=== PATIENT | male | born 1985 | race Caucasian/White ===

== ENCOUNTER 2017-07-16 02:43 | Inpatient (IN) | payer MEDICARE, MEDICAID ==
[~2017-07-16] VITALS: Ht 188 cm; Wt 81.6 kg
--- NOTE | ~2017-07-16 | PN ---
Unit #: [id number] #: [id number] Patient: FRANKY ANTONIO [id number] [facility] [address] [place] [address] [id number] MR#: [id number] NAME: FRANKY ANTONIO. ROOM: P252 Age: 32 Sex: M Admission Date: 07/16/2017 : 1985 Attending Physician: Prabhjot Arora M.D. Admitting Physician: Prabhjot Arora M.D. Primary Care Physician: Generic Doctor Not In System [facility] PROGRESS NOTES DATE 07/18/2017 DISCUSSION Franky is tolerating Abilify with no significant adverse side effects and less sedation than previously. His mood remains labile and depressed with a congruent affect. He is alert and fully oriented. His memory and concentration are [id number]. His thought processes are logical with some auditory hallucinations and command suicidal content. ASSESSMENT Schizophrenia, paranoid type. Major depression. PLAN Continue Abilify and current medications. Dictated by... Sharyn Power/marixa TD: 07/19/2017 07:22 JOB #: [id number] [facility] PROGRESS NOTES Page 1 of 1 X Prabhjot Arora MD PROGRESS NOTE
--- NOTE | ~2017-07-16 | PN ---
Unit #: [id number] #: [id number] Patient: FRANKY ANTONIO [id number] [facility] [address] [place] [address] [id number] I MR#: [id number] NAME: FRANKY ANTONIO. ROOM: P258 Age: 32 Sex: M Admission Date: 07/16/2017 : 1985 Attending Physician: Prabhjot Arora M.D. Admitting Physician: Prabhjot Arora M.D. Primary Care Physician: Generic Doctor Not In System [facility] PROGRESS NOTES DATE 07/19/2017 DISCUSSION Franky is compliant with Abilify with no significant adverse side effects. He is sleeping okay with a good appetite. He is minimally participating in psychotherapy groups and activities and continues to report a depressed and irritable mood with suicidal ideation. He is equivocal about active psychosis. ASSESSMENT Bipolar depressed. PLAN Continue with Abilify. Dictated by... Prabhjot Arora M.D. MRH/bzg TD: 07/20/2017 08:37 JOB #: [id number] [facility] PROGRESS NOTES Page 1 of 1 X Prabhjot Arora MD X PROGRESS NOTE
--- NOTE | ~2017-07-16 | PN ---
Unit #: [id number] #: [id number] Patient: ADEOLA ANTONIO [id number] [facility] [address] [place] [address] [id number] I MR#: [id number] NAME: ADEOLA ANTONIO. ROOM: P258 Age: 32 Sex: M Admission Date: 07/16/2017 : 1985 Attending Physician: Prabhjot Arora M.D. Admitting Physician: Prabhjot Arora M.D. Primary Care Physician: Generic Doctor Not In System [facility] PROGRESS NOTES DATE 07/20/2017 DISCUSSION Mr. Antonio appears improved today and in fact states that he is "ready to go." He states that this is because of an upcoming weather change and he wants to establish his correction housing before the cold sets in, unfortunately, he wants to return to [place], [place] and we do not have transportation available today. He cannot provide private transportation on his own. He is compliant with medications and otherwise doing better. ASSESSMENT Bipolar depressed. PLAN Continue Abilify and work towards discharge as soon as transportation becomes available. Dictated by... Prabhjot Arora M.D. СЕРГЕЙ/marixa TD: 07/22/2017 09:39 JOB #: [id number] [facility] PROGRESS NOTES Page 1 of 1 X Prabhjot Arora MD PROGRESS NOTE
--- NOTE | ~2017-07-16 | HP ---
Unit #: [id number] #: [id number] Patient: FRANKY ANTONIO [id number] [place] [address] [id number] I MR#: [id number] NAME: FRANKY ANTONIO. ROOM: P252 Age: 32 Sex: M Admission Date: 07/16/2017 : 1985 Attending Physician: Prabhjot Arora M.D. Admitting Physician: Prabhjot Arora M.D. Primary Care Physician: Generic Doctor Not In System HISTORY AND PHYSICAL HISTORY OF PRESENT ILLNESS Franky is a 32 year old admitted to [address] [place] [address] with depression and verbalizing wanting to hurt himself. PAST MEDICAL HISTORY Nothing significant. PAST SURGICAL HISTORY Right knee. ALLERGIES Penicillin. SOCIAL HISTORY Smokes 1 pack per day. Drinks at least 16 ounces of beer on a daily basis and denies illicit drug use. FAMILY HISTORY Medically noncontributory. REVIEW OF SYSTEMS CONSTITUTIONAL: No fever or chills. HEENT: Denies any sore throat, ear pain or runny nose. CARDIOVASCULAR: Denies chest pain, irregular heart rhythm or palpitations. CHEST: Denies shortness of breath or cough. No hemoptysis. GASTROINTESTINAL: Denies nausea, vomiting, diarrhea or chronic constipation. ENDOCRINE: Denies history of increased thirst or urination. No recent significant weight loss or gain. GENITOURINARY: Denies dysuria, frequency, or hematuria. SKIN: Denies any rashes. HEMATOLOGIC: Denies history of increased bleeding or bruising. MUSCULOSKELETAL: Denies any hot, swollen joints. No generalized muscle pain. NEUROLOGIC: Denies problems with vision or speech. No frequent, severe headaches. No numbness, tingling or weakness in any extremities. Denies loss of bladder or bowel control. CURRENT MEDICATIONS 1. Geodon 40 mg b.i.d. 2. Desyrel p.r.n. 3. Milk of Magnesia p.r.n. 4. Maalox p.r.n. Unit #: [id number] #: [id number] Patient: FRANKY ANTONIO 5. Tylenol p.r.n. 6. Nicotine patch 14 mg daily. PHYSICAL EXAMINATION GENERAL: Alert, well-nourished, in no apparent distress. VITAL SIGNS: Blood pressure 152/82, heart rate 100, respirations 16, temperature 98.6. WEIGHT: 180. HEIGHT: 6 feet 2 inches. SKIN: Warm and dry without rash or lesion. HEENT: Normocephalic. TMs not viewed. Oral and nasal passages clear. Conjunctivae clear. PERRLA. EOMs intact. NECK: Supple without lymphadenopathy or thyromegaly. HEART: Regular rate and rhythm without murmur. LUNGS: Clear. ABDOMEN: Soft, nontender. : Not done. EXTREMITIES: No evidence of cyanosis, clubbing or edema. Moves all without focal deficit. NEUROLOGICAL: Grossly within normal limits. Cranial Nerves: II: Visual meeks are intact. III, IV AND : Extraocular movements are intact. Pupils are equal, round and reactive to light. V: Facial sensation is grossly normal. VII: Facial movements and expression are normal. VIII: Auditory acuity grossly intact. IX, X: Uvula is midline. Phonation is normal. XI: Patient shrugs shoulders and turns head normally. XII: Tongue protrudes in the midline. Sensory and Motor Function: Sensory and motor sensation is grossly normal. Motor: moves all extremities well. Coordination: Gait is normal. Deep Tendon Reflexes: Intact. IMPRESSION Psychiatric admission. RECOMMENDATIONS PSYCHIATRIC: Per psychiatrist. MEDICAL: See no contraindication to participate in facility's activities. MEDICAL PROGNOSIS Good. MEDICAL CONDITION Stable. Dictated by... Christa Hester P.A.-C. for Sharyn Ceron/beverly TD: 07/16/2017 18:38 JOB #: [id number] Unit #: [id number] #: [id number] Patient: FRANKY ANTONIO HISTORY AND PHYSICAL Page 1 of 1 X Christa Hester HISTORY AND PHYSICAL
--- NOTE | ~2017-07-16 | DS ---
Unit #: [id number] #: [id number] Patient: FRANKY ANTONIO [id number] [facility] [address] [place] [address] [id number] I MR#: [id number] NAME: FRANKY ANTONIO. ROOM: P258 Age: 32 Sex: M Admission Date: 07/16/2017 : 1985 Discharge Date: 07/22/2017 Attending Physician: Prabhjot Arora M.D. Primary Care Physician: Generic Doctor Not In System DISCHARGE SUMMARY REASON FOR ADMISSION Franky is a 32-year-old man who came to the emergency room with and had relapsed to psychosis after he stopped his medications. He did have suicidal ideation and [facility]. DIAGNOSTIC STUDIES LABORATORY DATA: See referring hospital records. HOSPITAL COURSE Patient was admitted and placed on suicide precautions. Geodon twice daily 40 mg was initiated for psychosis and trazodone for insomnia. The patient complained of excessive sedation from Geodon and stated that he could not tolerate this medication, so it was changed to Abilify 15 mg at bedtime. Trazodone was continued, but the patient rarely used it for sleep. His mood improved, and he had a brighter affect. On the date of discharge he was able to contract for safety once again in the outpatient setting. DISCHARGE DIAGNOSES AXIS I: Schizophrenia paranoid type. Major depression. AXIS II: No diagnosis. AXIS III: None acute. DISCHARGE INSTRUCTIONS Follow up with the [facility] in [place], [place], and [facility]. DISCHARGE MEDICATIONS Abilify 15 mg at bedtime for psychosis. CONDITION ON DISCHARGE Improved. PROGNOSIS Fair to good. DIET AND ACTIVITY Per primary care doctor. Dictated by... Unit #: [id number] #: [id number] Patient: FRANKY ANTONIO Prabhjot Arora M.D. MRH/bzg TD: 07/25/2017 10:20 JOB #: [id number] DISCHARGE SUMMARY Page 1 of 1 X Prabhjot Arora MD X DISCHARGE SUMMARY
--- NOTE | ~2017-07-16 | PA ---
Unit #: [id number] #: [id number] Patient: FRANKY ANTNOIO [id number] [facility] [address] [place] [address] [id number] I MR#: [id number] NAME: FRANKY ANTONIO. ROOM: [facility] Age: 32 Sex: M Admission Date: 07/16/2017 : 1985 Date of Assessment: 07/16/2017 Attending Physician: Prabhjot Arora M.D. Admitting Physician: Prabhjot Arora M.D. Primary Care Physician: Generic Doctor Not In System PSYCHIATRIC ASSESSMENT INFORMANT(S) Patient, reliable. [facility], reliable. [facility], reliable. CHIEF COMPLAINT "Bad year." HISTORY OF PRESENT ILLNESS Franky is a 32-year-old man, who presented to the emergency room complaining of multiple psychosocial stressors, and a relapse after developing psychosis after he stopped his medications. He reports a history of schizophrenia noted by paranoia and auditory hallucinations. He also reported suicidal ideation and was unable to contract for safety. [facility]. PAST PSYCHIATRIC HISTORY The patient does not list any previous psychiatric hospitalizations. He states that he has taken antipsychotics in the past but could not be more specific. FAMILY PSYCHIATRIC HISTORY The patient's sister has a history of schizophrenia and generalized anxiety. SOCIAL HISTORY The patient denied a history of childhood abuse or neglect. He is a single heterosexual man with minimal psychosocial support in the community at this time. He is homeless having moved to [place] only about a week ago. He has a fixed income from disability. PAST MEDICAL HISTORY No chronic medical problems. MEDICATIONS None currently. ALLERGIES Penicillins. SUBSTANCE ABUSE HISTORY The patient gives an equivocal history of using alcohol in the past but no other chemical dependence issues. Unit #: [id number] #: [id number] Patient: FRANKY ANTONIO MENTAL STATUS EXAM Franky presented as a thin, mildly disheveled man, who appeared older than his stated age. He was cooperative with the examination. His speech was soft, but easily understood. Musculoskeletal examination was calm. His mood was depressed with a flat affect. He was alert and fully oriented. His memory and concentration were intact. His thought processes were logical with no active paranoia but he did report ongoing auditory hallucinations with command suicidal content. He also reported a plan to shoot himself. Insight and judgment were fair. Fund of knowledge and abstraction were fair. ASSETS The patient is familiar with local resources and presents voluntary for treatment. LIABILITIES Include difficulty obtaining medications, temporary homelessness, and lack of support. ADMITTING DIAGNOSES [place] I: Schizophrenia, paranoid type, F20.0. Major depressive disorder. [place] II: No diagnosis. [place] III: None acute. [place] IV: [place] V: PSYCHIATRIC PLAN Mr. Antonio was admitted and placed on suicide precautions. We will initiate Geodon 40 mg twice daily for psychosis and provide trazodone as needed for insomnia. He will enroll in dual diagnosis groups and activities and a physical examination and laboratory studies will be ordered and reviewed. TREATMENT GOALS Resolution of suicidal ideation, improvement in psychosis, improvement in insight, improvement in coping skills. DISCHARGE PLANNING Follow up with [facility]. ESTIMATED LENGTH OF STAY Five days. Dictated by... Prabhjot Arora M.D. СЕРГЕЙ/marixa TD: 07/19/2017 09:03 JOB #: [id number] Unit #: [id number] #: [id number] Patient: FRANKY ANTONIO PSYCHIATRIC ASSESSMENT Page 1 of 1 X Prabhjot Arora MD PSYCHIATRIC ASSESSMENT
--- NOTE | ~2017-07-16 | PN ---
Unit #: [id number] #: [id number] Patient: FRANKY ANTONIO [id number] [facility] [address] [place] [address] [id number] I MR#: [id number] NAME: FRANKY ANTONIO. ROOM: P252 Age: 32 Sex: M Admission Date: 07/16/2017 : 1985 Attending Physician: Prabhjot Arora M.D. Admitting Physician: Prabhjot Arora M.D. Primary Care Physician: Generic Doctor Not In System [facility] PROGRESS NOTES DATE 07/17/2017 DISCUSSION Franky stated that the Geodon is making him extremely sedated and he does not feel that he can tolerate it. His speech is a little slurred this morning and he is having trouble waking up. Mood remains depressed and labile with a congruent affect and he continues to report auditory hallucinations with command suicidal content. ASSESSMENT Schizophrenia. PLAN We will change Geodon to Abilify 15 mg at bedtime and monitor for sedation. Dictated by... Sharyn Power/marixa TD: 07/19/2017 12:00 JOB #: [id number] [facility] PROGRESS NOTES Page 1 of 1 X Prabhjot Arora MD PROGRESS NOTE
[2017-07-18 10:15] LABS: AMPHETAMINE NEG (NEG); BARBITURATES NEG (NEG); BENZODIAZEPINES NEG (NEG); COCAINE NEG (NEG); MARIJUANA NEG (NEG); OPIATES NEG (NEG); TRICYCLIC ANTIDEPRESSANTS NEG (NEG); U METHADONE NEG (NEG)
== END 2017-07-22 17:05 | disposition home or self-care (01) | DRG 885 ==
LOC: P2L 07:57
PROVIDERS: Psychiatry & Neurology Psychiatry
DX: F20.0 Paranoid schizophrenia (principal); F32.9 Major depressive disorder, single episode, unspecified
CPT/HCPCS: 80307; J1200

== ENCOUNTER 2017-07-23 23:44 | Inpatient (IN) | payer MEDICARE, MEDICAID ==
[~2017-07-23] VITALS: Ht 185.4 cm; Wt 80.3 kg
--- NOTE | ~2017-07-23 | PN ---
Unit #: [id number] #: [id number] Patient: FRANKY PEREZ [id number] [facility] [address] [place] [address] [id number] MR#: [id number] NAME: FRANKY PEREZ. ROOM: P131 Age: 32 Sex: M Admission Date: 07/24/2017 : 1985 Attending Physician: Ppo Lopez M.D. Admitting Physician: Pop Lopez M.D. Primary Care Physician: Primary Care Physician Dulce SPEAR PROGRESS NOTES DATE 07/28/2017 DISCUSSION Franky Perez is a 32-year-old male. The patient interviewed, chart reviewed, and obtained information from the nursing staff. The patient was compliant and cooperative but still isolative, compliant with medication, no side effects from medication. REVIEW OF SYSTEMS Complete review of systems unremarkable. MENTAL STATUS EXAMINATION General appearance: Patient dressed casually. Attention span and concentration, fair. Oriented in time, place, and person. Mood and affect, labile. Speech, monotone. Thought process, goal-directed. The patient denied any thoughts of harming self or others. Recent and remote memory, poor. Insight and judgment, poor. DIAGNOSES 1. Schizophrenia, chronic paranoid type. 2. Mood disorder, NOS. ASSESSMENT/PLAN Advised to continue with the current medication and therapeutic protocol, if needed consider further adjustment of medication. Dictated by... Sharyn Mitchell/marixa TD: 07/31/2017 09:34 JOB #: [id number] Unit #: [id number] #: [id number] Patient: FRANKY PEREZJATIN PROGRESS NOTES Page 1 of 1 X Pop Lopez MD PROGRESS NOTE
--- NOTE | ~2017-07-23 | HP ---
Unit #: [id number] #: [id number] Patient: FRANKY ANTONIO [id number] [facility] [address] [place] [address] [id number] MR#: [id number] NAME: FRANKY ANTONIO. ROOM: P131 Age: 32 Sex: M Admission Date: 07/24/2017 : 1985 Attending Physician: Pop Lopez M.D. Admitting Physician: Pop Lopez M.D. Primary Care Physician: Primary Care Physician No HISTORY AND PHYSICAL NOTE Franky is a 32 year old admitted to [address] [place] [address] with depression and verbalizing wanting to hurt himself. He was just discharged from this facility after treatment for the same. The patient was seen and H and P dated 07/16/2017 was reviewed. This is current. No changes. Please see H and P dated 07/16/2017. Dictated by... Christa Hester P.A.-C. for Sharyn Ceron/brandee TD: 07/24/2017 20:52 JOB #: [id number] HISTORY AND PHYSICAL Page 1 of X Christa Hester HISTORY AND PHYSICAL
--- NOTE | ~2017-07-23 | PA ---
Unit #: [id number] #: [id number] Patient: FRANKY ANTONIO [id number] [facility] [address] [place] [address] [id number] I MR#: [id number] NAME: FRANKY ANTONIO. ROOM: 31 Age: 32 Sex: M Admission Date: 07/24/2017 : 1985 Date of Assessment: 07/24/2017 Attending Physician: Pop Lopez M.D. Admitting Physician: Pop Lopez M.D. Primary Care Physician: Primary Care Physician No PSYCHIATRIC ASSESSMENT INFORMANTS The patient reliability, fair informant and chart reliability, good. CHIEF COMPLAINT Depression and suicidal ideation. HISTORY OF PRESENT ILLNESS Mr. Franky Antonio is a 32-year-old male, presented with the above-mentioned complaint. The patient was last admitted in 07/2017. The patient presented due to depression and suicidal ideation with a plan. The patient currently homeless. Reported discharge from [facility] yesterday. The patient was at [facility] from 07/16/2017 to 07/20/2017. The patient had suicidal ideation with a plan to overdose. The patient reported that he did not feel suicidal yesterday, but began to feel suicidal when he had difficulty sleeping at night. When discharged, the patient reported feelings that he needs to go inpatient, unable to contract for safety, to get medication right. The patient has a history of suicide attempt and high risk factor and a low protective factor. The patient has no family, no social support system. Currently, homeless. Needing inpatient admission at this time for psychiatric stabilization due to depression and visual hallucination. PAST PSYCHIATRIC HISTORY Remarkable for history of recent admission at [facility] and recent history of suicide attempt. FAMILY HISTORY AND SOCIAL HISTORY The patient currently homeless. Poor support system. No history of abuse. No legal problem. MEDICAL HISTORY Unremarkable for any chronic medical illness. ALLERGIES To penicillin. MEDICATION HISTORY Abilify 15 mg daily, before he was Geodon. SUBSTANCE ABUSE HISTORY None. REVIEW OF SYSTEMS Unit #: [id number] #: [id number] Patient: FRANKY ANTONIO HEENT: Eyes, clear. Ears, nose, mouth, and throat; clear. CARDIOVASCULAR: Unremarkable. RESPIRATORY: Unremarkable. GI: Unremarkable. : Unremarkable. SKIN: Unremarkable. LYMPH NODE: Unremarkable. NEUROLOGIC: Unremarkable. ENDOCRINE: Unremarkable. HEMATOLOGIC: Unremarkable. ALLERGIC/IMMUNOLOGIC: Unremarkable. MUSCULOSKELETAL: Muscle strength and tone, no atrophy or abnormal movement. Gait normal. MENTAL STATUS EXAMINATION CONSTITUTIONAL: Measurement of vital signs; temperature 97.0, heart rate 84, respiratory rate 16, and blood pressure 112/66. Height 6 feet and weight 177 pounds. GENERAL APPEARANCE: The patient dressed casually. The patient did not show any facial deformity. MUSCULOSKELETAL: Please see above. PSYCHIATRIC EXAMINATION Description of speech; regular rate, normal volume, normal articulation, and coherent. Description of thought process, goal directed. Description of association, intact. Description of abnormal psychotic thinking; the patient denied any hallucinations or delusions, but mood lability, depression, hallucination, and suicidal ideation. Description of the patient's judgment: Concerning everyday activity, poor. Social situation, poor. Concerning psychiatric condition, poor. Complete mental status examination; oriented in time, place, and person. Recent and remote memory, fair. Attention span and concentration, fair. Language, able to name object and repeat phrases. Fund of knowledge, aware of current event and passive vocabulary intact. Mood and affect, sad and dysphoric. Insight and judgment, fair to poor. ASSETS AND LIABILITIES Assets, the patient is articulate and able to take care of his ADL. Liability, history of depression and suicidal ideation. ADMITTING DIAGNOSES Psychiatric: Schizophrenia, chronic paranoid type, F20.0 and major depressive disorder, recurrent, severe, F33.2. Secondary diagnosis: Deferred. Medical diagnosis: None. Stressors: Psychosocial stressors. PSYCHIATRIC PLAN AND TREATMENT GOAL AND DISCHARGE PLAN 1. Advised to admit the patient on the inpatient unit. Provide safe, supportive, and structured environment. 2. Ordered labs, UA and UDS. 3. Advised to resume Abilify and add Desyrel 50 mg at bedtime. The patient to attend all the programing, group therapy, individual therapy, and medication management. Treatment goal to attain euthymic mood, gain Unit #: [id number] #: [id number] Patient: FRANKY ANTONIO insight into his problem, and learn coping skills. DISCHARGE PLAN Plan to stabilize the patient and consider followup in outpatient program. ESTIMATED LENGTH OF STAY 2 weeks. Dictated by... Pop Lopez M.D. SILVESTRE/wesley TD: 07/24/2017 16:59 JOB #: [id number] PSYCHIATRIC ASSESSMENT Page 1 of 1 X Pop Lopez MD PSYCHIATRIC ASSESSMENT
--- NOTE | ~2017-07-23 | PN ---
Unit #: [id number] #: [id number] Patient: FRANKY PEREZ [id number] [facility] [address] [place] [address] [id number] MR#: [id number] NAME: FRANKY PEREZ. ROOM: [facility] Age: 32 Sex: M Admission Date: 07/24/2017 : 1985 Attending Physician: Pop Lopez M.D. Admitting Physician: oPp Lopez M.D. Primary Care Physician: Primary Care Physician Dulce SPEAR PROGRESS NOTES DATE 07/27/2017 DISCUSSION Frakny Perez is a 32-year-old male, seen on 07/27/2017. The patient interviewed, chart reviewed, and obtained information from the nursing staff. The patient's vital signs, 98.2, 72, 14, and 121/62. The patient continues to be isolative, flat affect, withdrawn, sad, depressed, able to contract for safety this morning. REVIEW OF SYSTEMS Complete review of systems unremarkable. MENTAL STATUS EXAMINATION General appearance: Patient dressed casually. Attention span and concentration, fair. Oriented in time, place, and person. Mood and affect, sad, dysphoric, withdrawn. Speech, monotone. Thought process, concrete. The patient denied any thoughts of harming self or others, able to contract for safety but still seclusive, isolative, sad, depressed. Recent and remote memory, poor. Insight and judgment, poor. DIAGNOSES 1. Schizophrenia, chronic paranoid type. 2. Mood disorder, NOS. ASSESSMENT/PLAN Advised to continue with the current medication and therapeutic protocol, and if needed consider further adjustment of medication. Dictated by... Sharyn Mitchell/marixa TD: 07/30/2017 08:05 JOB #: [id number] Unit #: [id number] #: [id number] Patient: FRANKY PEREZ PEAJATIN PROGRESS NOTES Page 1 of 1 X Pop Lopez MD PROGRESS NOTE
--- NOTE | ~2017-07-23 | DS ---
Unit #: [id number] #: [id number] Patient: ADEOLA ANTONIO [id number] [facility] [address] [place] [address] [id number] MR#: [id number] NAME: ADEOLA ANTONIO. ROOM: [facility] Age: 32 Sex: M Admission Date: 07/24/2017 : 1985 Discharge Date: 07/29/2017 Attending Physician: Pop Lopez M.D. Primary Care Physician: Primary Care Physician No DISCHARGE SUMMARY REASON FOR ADMISSION Suicidal ideation. DIAGNOSTIC STUDIES LABORATORY RESULTS: Unremarkable. HOSPITAL COURSE The patient was admitted to inpatient unit on 07/24/2017 and discharged on 07/29/2017. The patient was treated with group therapy, individual therapy, and medication management. The patient was responsive to treatment and showed improvement. Subsequently, the patient was discharged with a plan to follow up in outpatient program. DISCHARGE MEDICATIONS Abilify 15 mg at bedtime for psychosis and mood symptom and trazodone 50 mg at bedtime for sleep. DISCHARGE DIAGNOSES Psychiatric: Schizophrenia, chronic paranoid type, F20.0 and major depressive disorder, recurrent, severe, F33.2. Secondary diagnosis: Deferred. Medical diagnosis: None. Stressors: Psychosocial stressors. DISCHARGE INSTRUCTIONS The patient to follow up in outpatient clinic as per social service assistant. CONDITION ON DISCHARGE The patient was pleasant and cooperative. Denied any psychotic symptom or any suicidal ideation. PROGNOSIS Guarded. DIET AND ACTIVITY As tolerated. Dictated by... Pop Lopez M.D. Unit #: [id number] #: [id number] Patient: ADEOLA ANTONIO SZC/modl TD: 07/29/2017 16:13 JOB #: [id number] DISCHARGE SUMMARY Page 1 of 1 X Pop Lopez MD X DISCHARGE SUMMARY
--- NOTE | ~2017-07-23 | PN ---
Unit #: [id number] #: [id number] Patient: FRANKY ANTONIO [id number] [facility] [address] [place] [address] [id number] MR#: [id number] NAME: FRANKY ANTONIO. ROOM: 31 Age: 32 Sex: M Admission Date: 07/24/2017 : 1985 Attending Physician: Pop Lopez M.D. Admitting Physician: Pop Lopez M.D. Primary Care Physician: Primary Care Physician Dulce SPEAR PROGRESS NOTES DATE 07/26/2017 DISCUSSION Franky is a 32-year-old male, seen on 07/26/2017. The patient interviewed, chart reviewed, and obtained information from the nursing staff. The patient reports that he is sleeping good, compliant with medication, but still isolative, withdrawn, sad, dysphoric, having passive SI. REVIEW OF SYSTEMS Complete review of systems unremarkable. MENTAL STATUS EXAMINATION General appearance: Patient dressed casually. Attention span and concentration, fair. Oriented in time, place, and person. Mood and affect, sad, depressed, withdrawn, isolative, having passive SI, guarded. Recent and remote memory, poor. Insight and judgment, poor. DIAGNOSIS Schizophrenia, chronic paranoid type. ASSESSMENT/PLAN Advised to continue with the current medication and therapeutic protocol, if needed consider further adjustment of medication. Dictated by... Sharyn Mitchell/marixa TD: 07/29/2017 06:09 JOB #: [id number] Unit #: [id number] #: [id number] Patient: FRANKY ANTONIOJATIN PROGRESS NOTES Page 1 of 1 X Pop Lopez MD PROGRESS NOTE
--- NOTE | ~2017-07-23 | PN ---
Unit #: [id number] #: [id number] Patient: FRANKY ANTONIO [id number] [facility] [address] [place] [address] [id number] MR#: [id number] NAME: FRANKY ANTONIO. ROOM: [facility] Age: 32 Sex: M Admission Date: 07/24/2017 : 1985 Attending Physician: Pop Lopez M.D. Admitting Physician: Pop Lopez M.D. Primary Care Physician: Primary Care Physician Dulce SPEAR PROGRESS NOTES DATE OF SERVICE 07/25/2017 DISCUSSION Franky is a 32-year-old male seen on 07/25/2017. The patient interviewed, chart reviewed. Obtained information from nursing staff. The patient was compliant, cooperative. Mood sad, dysphoric, flat affect, guarded. No aggressive behavior. Still sad, depressed. Complete Review of Systems: Unremarkable. MENTAL STATUS EXAMINATION General Appearance: The patient dressed casually. Attention span, concentration: Fair. Oriented in time, place, and person. Mood and affect: Sad, depressed, withdrawn, isolative. Speech monotone. Thought process: Benedict. The patient having passive SI, withdrawn. Recent and remote memory: Poor. Insight and judgment: Poor. DIAGNOSIS Schizophrenia, chronic, paranoid type. ASSESSMENT/PLAN Advised to continue with current medication and therapeutic protocol. If needed, consider further adjustment of medication. Dictated by... Sharyn Mitchell/brandi TD: 07/26/2017 09:25 JOB #: [id number] Unit #: [id number] #: [id number] Patient: FRANKY ANTONIO [facility] PROGRESS NOTES Page 1 of 1 X Pop Lopez MD PROGRESS NOTE
[2017-07-26 13:05] LABS: URINE APPEARANCE CLEAR; URINE BILIRUBIN NEG (NEG); URINE BLOOD NEG (NEG); URINE COLOR YELLOW; URINE GLUCOSE NEG (NEG); URINE KETONE NEG (NEG); URINE LEUKOCYTE ESTERASE NEG (NEG); URINE NITRATE NEG (NEG); URINE PH 6.5 (5-8); URINE PROTEIN NEG (NEG); URINE SPECIFIC GRAVITY 1.007 (1.003-1.035); URINE UROBILINOGEN 0.2 MG/DL (NEG)
[2017-07-26 13:09] LABS: AMPHETAMINE NEG (NEG); BARBITURATES NEG (NEG); BENZODIAZEPINES NEG (NEG); COCAINE NEG (NEG); MARIJUANA NEG (NEG); OPIATES NEG (NEG); TRICYCLIC ANTIDEPRESSANTS NEG (NEG); U METHADONE NEG (NEG)
== END 2017-07-29 10:20 | disposition home or self-care (01) | DRG 885 ==
LOC: P1S 07-24 02:46
PROVIDERS: Psychiatry & Neurology Psychiatry
DX: F20.0 Paranoid schizophrenia (principal); F33.2 Major depressive disorder, recurrent severe without psychotic features; R45.851 Suicidal ideations; Z88.0 Allergy status to penicillin; Z59.0 Homelessness
CPT/HCPCS: 80307; 81003